=== PATIENT | female | born 1960 | race Caucasian/White ===

== ENCOUNTER 2024-09-27 06:40 | Day surgery (SDC) | payer BC, MEDICARE ==
[~2024-09-27] VITALS: Ht 165.1 cm; Wt 63.0 kg
[~2024-09-27 06:40] MED LIST: CO Q-1010 MG PO; LACTATED RINGER'S 1,000 ML IV SCH; LISINOPRIL-HCT1 EACH PO; OMEGA 3-6-9 CO400 MG PO; OMEPRAZOLE20 MG PO; PROBIOTIC 4X C1 EACH PO; VITAMIN B-COMP1 EACH PO; VITAMIN D350 MCG PO
[2024-09-27] MEDS ORDERED: BUPIVACAINE HCL 0.25% 50 ML MDV ONE (06:41)
[2024-09-27] MEDS ORDERED: IBLOOD GLUCOSE TEST STRIP 1 EA TEST VI PRN ×2 (07:00→09:15)
[2024-09-27] MEDS ORDERED: TRANEXAMIC ACID IN NACL,ISO-OS 1,000 MG/100 ML PIGGYBACK IV SCH (07:00)
[2024-09-27] MEDS ORDERED: CEFAZOLIN SODIUM 2 GM/20 ML SYR IV SCH (07:00)
[2024-09-27] MEDS ORDERED: LIDOCAINE HCL 1% 5 ML SDV INJ ONE (07:00)
[2024-09-27] MEDS ORDERED: Ropivacaine HCl 0.5% 30 ML VIAL ONE (07:30)
[2024-09-27] MEDS ORDERED: SODIUM CHLORIDE 0.9% 20 ML IV ONE (07:30)
[2024-09-27] MEDS ORDERED: LIDOCAINE HCL 2% 5 ML SDV ONE ×2 (07:30→10:16)
[2024-09-27] MEDS ORDERED: DEXAMETHASONE SOD PHOS 4 MG/ML VIAL ONE ×2 (07:30→10:16)
[2024-09-27 07:31] VITALS: BP 117/62
[2024-09-27] MEDS ORDERED: MIDAZOLAM HCL 2 MG/2 ML VIAL ONE (07:31)
--- NOTE | 2024-09-27 08:05 | NUR ---
VISITED DURING SPIRITUAL CARE ROUNDS. PT IN OVERALL GOOD SPIRITS, NO IMMEDIATE NEEDS. MANAGER PART PROVIDED SUPPORTIVE PRESENCE, HOSPITALITY, PRAYER, FACILITATED INTERACTION WITH THERAPY ANIMAL.
[2024-09-27] MEDS ORDERED: ondansetron HCL 4 MG/2 ML VIAL IV PRN (09:15)
[2024-09-27] MEDS ORDERED: NALOXONE HCL 0.4 MG SYR IV PRN (09:15)
[2024-09-27] MEDS ORDERED: fentaNYL citrate 50 MCG/ML SDV IV PRN (09:15)
[2024-09-27] MEDS ORDERED: ondansetron HCL 4 MG/2 ML VIAL ONE (10:16)
[2024-09-27] MEDS ORDERED: propofoL 200 MG/20 ML VIAL ONE (10:16)
[2024-09-27] MEDS ORDERED: KETOROLAC TROMETHAMINE 15 MG/ML VIAL IV PRN (10:30)
[2024-09-27] MEDS ORDERED: HYDROCODONE/ACETA 7.5/325 TAB PO PRN (10:30)
[2024-09-27] MEDS ORDERED: KETOROLAC TROMETHAMINE 30 MG/ML VIAL ONE (11:23)
[2024-09-27 11:30] VITALS: BP 133/59
[2024-09-27] MEDS ORDERED: HYDROCODON-ACE1 EA11 PO (11:37)
[2024-09-27] MEDS ORDERED: CELECOXIB200 MG PO (11:37)
--- NOTE | 2024-09-27 11:50 | NUR ---
09/27/24 1150 Anna Mancera 1141-PT ARRIVES TO PACU VIA STRETCHER, RESTING SEMI FOWLERS, PT A+O X4, DENIES PAIN OR NAUSEA, VSS ON RA. CRYO CUFF APPLIED TO LT SHOULDER AND ELEVATED ON PILLOW.
[2024-09-27 12:07] VITALS: BP 138/81
--- NOTE | 2024-09-27 12:20 | NUR ---
1205- PT ARRIVES FROM PACU. PT SIPPING ON DIET CRANBERRY JUICE AND STRAWBERRY JELLO PER REQUEST. PT BED IS LOCKED AND IN THE LOWEST POSITION. CRYOCUFF IS ON. CALL LIGHT IN REACH. DISCHARGE CRITERIA DISCUSSED AND PT IS UNDERSTANDING. PT DENIES QUESTIONS AND CONCERNS.
--- NOTE | 2024-09-27 12:28 | OR ---
[facility] [address], [place] [address] Signed DATE OF OPERATION: 09/27/2024 SURGEON: Alfonzo Fisher MD PREOPERATIVE DIAGNOSIS: Partial rotator cuff tear, left shoulder. POSTOPERATIVE DIAGNOSES: 1. Partial rotator cuff tear, left shoulder. 2. 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 PROCEDURE PERFORMED: Left shoulder arthroscopy with debridement. DISTRIBUTION SUPERVISOR: Tabatha Roe PA-C. Tabatha was present, critical for all portions of procedure. ANESTHESIA: General. BLOOD LOSS: Minimal. BRIEF HISTORY: Radha is a 64-year-old female with pain in her shoulder. She had prior biceps tenodesis without significant relief. Risks and benefits of operative treatment were discussed with her and she elected to proceed. Once consent was obtained she was taken to the operating room. After adequate anesthesia she was placed on the operating table in the beach chair position. All downside pressure points were well padded. The left shoulder was prepped and draped in a standard sterile fashion. The shoulder was injected with 15 mL 0.25% Marcaine with epinephrine as was subacromial space. Standard posterior portal was made. The scope was introduced in the shoulder. ARTHROSCOPIC FINDINGS: Biceps was noted to be absent. The labrum was intact. The glenohumeral surfaces showed grade 4 chondromalacia over 50% to 60% of the glenoid and about 40% to 50% of the humerus. Undersurface of the rotator cuff was intact. The only small defect was the rotator cuff interval. Subacromial space showed absolutely no bursitis. The superior surface of the rotator cuff was intact. Electronically Signed By: ALFONZO FISHER MD 09/27/24 1228 PATIENT NAME: RADHA FLANNERY OPERATIVE REPORT DATE OF : 64 REPORT #: [id number] PHYSICIAN: ALFONZO FISHER MD PCP: NO PRIMARY CARE PHYSICIAN REPORT IS CONFIDENTIAL AND NOT TO BE RELEASED WITHOUT AUTHORIZATION [facility] [address], [place] [address] Signed DESCRIPTION OF OPERATION: Standard anterior portal was made using an outside in technique. The synovitis in the shoulder was debrided with the Mitek VAPR. This was done on a low setting. The glenohumeral chondral flaps were removed with the shaver. The remnants of the biceps were removed as well. Once this was completed, there was nothing further to do. The scope was withdrawn, placed in subacromial space and again subacromial bursoscopy was completely clear with no bursitis. Superior surface of the rotator cuff was pristine. The scope was withdrawn. Portals were closed with 3-0 nylon and the shoulder was injected with 60 mg Toradol. She tolerated the procedure well. All sponge, needle, and instrument counts were correct. The wounds were dressed with Allevyn and OpSite and she was awakened, taken to the recovery room in satisfactory condition. Alfonzo Fisher MD BA/HUGOL /[id number] Copies: ~ Electronically Signed By: ALFONZO FISHER MD 09/27/24 1228 PATIENT NAME: RADHA FLANNERY OPERATIVE REPORT DATE OF : 64 REPORT #: [id number] PHYSICIAN: ALFONZO FISHER MD PCP: NO PRIMARY CARE PHYSICIAN REPORT IS CONFIDENTIAL AND NOT TO BE RELEASED WITHOUT AUTHORIZATION
[2024-09-27 13:05] VITALS: BP 133/59
--- NOTE | 2024-09-27 13:42 | NUR ---
1305- VITAL SIGNS OBTAINED. PT TOLERATING PO WELL. PT UP TO RESTROOM WITH SLING IN PLACE. PT HAS A STEADY AND EVEN GAIT. 1310- PT RETURNS FROM RESTROOM. PT GETTING DRESSED INDEPENDENTLY. 1320- IV REMOVED AND DC INSTRUCTIONS GONE OVER. PT DENIES QUESTIONS AND CONCERNS. 1330-PT HAS ALL BELONGINGS, PAPERWORK AND EDUCATION. PT DENIES ANY NEEDS. PT DC FROM DAY SURGERY IN A WHEELCHAIR WITH HER DRIVING HER HOME.
[2024-09-27] MEDS ORDERED: CELECOXIB 200 MG CAP PO SCH (17:00)
[2024-09-27] MEDS ORDERED: SEVOFLURANE 250 ML BTL INH ONE (18:06)
[2024-09-27] MEDS ORDERED: ASPIRIN 325 MG TAB PO SCH (21:00)
== END 2024-09-27 13:30 | disposition home or self-care (01) ==
LOC: DS 06:40
PROVIDERS: ATTEND Specialist
PROC: 0RBK4ZZ Excision of Left Shoulder Joint, Percutaneous Endoscopic Approach (ICD-10-PCS; principal; 2024-09-27 11:35)
DX: M75.112 Incomplete rotator cuff tear or rupture of left shoulder, not specified as traumatic (principal); M94.212 Chondromalacia, left shoulder; M19.012 Primary osteoarthritis, left shoulder; M65.912 Unspecified synovitis and tenosynovitis, left shoulder; I10 Essential (primary) hypertension; K21.9 Gastro-esophageal reflux disease without esophagitis; Z88.5 Allergy status to narcotic agent; Z88.1 Allergy status to other antibiotic agents; Z88.8 Allergy status to other drugs, medicaments and biological substances
CPT/HCPCS: 01630; 64415; 76942; J0690; J1100; J1885; J2003; J2250; J2405; J2704; J2795; J7121